=== PATIENT | male | born 1990 | race Caucasian/White ===

== ENCOUNTER 2017-02-22 05:41 | Outpatient (CLI) | payer OTHER ==
[~2017-02-22] VITALS: Ht 185.4 cm; Wt 131.5 kg
== END 2017-02-22 11:06 ==
LOC: PREOP 05:41
PROVIDERS: ATTEND Surgery
DX: Z01.818 Encounter for other preprocedural examination (principal); R10.32 Left lower quadrant pain; K62.89 Other specified diseases of anus and rectum

== ENCOUNTER 2017-02-23 10:01 | Day surgery (SDC) | payer OTHER ==
[~2017-02-23] VITALS: Ht 185.4 cm; Wt 131.5 kg
[2017-02-23] MEDS ORDERED: NS IV 1000 ML 1,000 ML IV STA (10:37)
[2017-02-23] MEDS ORDERED: NS IV 1000 ML 1,000 ML ONE (10:38)
[2017-02-23] MEDS ORDERED: HURRICAINE EXT TUBE (BENZOCAINE) XX PRN (10:45)
[2017-02-23] MEDS ORDERED: PROPOFOL INJECTION 50 ML IV ONE ×2 (10:56→11:24)
[2017-02-23] MEDS ORDERED: MIDAZOLAM 5 MG/5 ML (VERSED) VIAL ONE (10:56)
--- NOTE | 2017-02-23 11:08 | Progress Note-Pre Operative ---
Pre-Operative Progress Note H&P Reviewed The H&P was reviewed, patient examined and no changes noted. Date H&P Reviewed: February 23, 2017 Time H&P Reviewed: 11:08 Pre-Operative Diagnosis: LLQ abdominal pain, anorectal pain ANDREI PICKERING DO February 23, 2017 11:08
[2017-02-23 11:12] VITALS: BP 136/98
[2017-02-23] MEDS ORDERED: fentaNYL INJECTION 100 MCG/2 ML AMP ONE (11:27)
--- NOTE | 2017-02-23 11:44 | Discharge Inst-Simple/Standard ---
Discharge Inst-Standard Patient Instructions/Follow Up Plan of Care/Instructions/FU: Follow up in [address] Bush Activity as Tolerated: Yes Discharge Diet: No Restrictions SHAWN RUIZ APRN February 23, 2017 11:44
--- NOTE | 2017-02-23 11:45 | Progress Note-Post Operative ---
Post-Operative Progess Note Surgeon (s)/Pinball Machine Repairer (s) Surgeon ANDREI PICKERING DO Pinball Machine Repairer: na Pre-Operative Diagnosis LLQ abdominal pain, anorectal pain Post-Operative Diagnosis rectal polyp Procedure & Operative Findings Date of Procedure 02/23/17 Procedure Preformed/Findings colonoscopy with hot bx polypectomy Anesthesia Type per penology professor Estimated Blood Loss Estimated blood loss (mL): none Specimens/Packing Specimens Removed rectal polyp Packing: ANDREI Dominguez DO February 23, 2017 11:45 am
[2017-02-23 12:35] VITALS: BP 128/74
[2017-02-23 13:05] VITALS: BP 134/75
[2017-02-23 13:15] VITALS: BP 134/75
--- NOTE | 2017-02-24 07:12 | OPERATIVE REPORT ---
DATE OF SERVICE: 02/23/2017 PREOPERATIVE DIAGNOSIS: Left lower quadrant abdominal pain, anorectal pain. POSTOPERATIVE DIAGNOSIS: Rectal polyp. PROCEDURE: Colonoscopy with hot biopsy polypectomy. SURGEON: Andrei Bush DO ANESTHESIA: Per PLATE ROLLER. ESTIMATED BLOOD LOSS: None. COMPLICATIONS: None. INDICATIONS: The patient is a 27-year-old male who has been having left lower quadrant abdominal pain along with anorectal pain and will on occasion have a little bit of leakage. He understands risks and benefits of procedure and wished to proceed with procedure. Consent was signed and on the chart. DESCRIPTION OF PROCEDURE: The patient was taken to the endoscopy suite, placed in left lateral recumbent position. Timeout was performed. Digital rectal exam was performed. There was no palpable polyps, masses or ulcerations present. Scope was inserted in the rectum and advanced all the way to the cecum with minimal difficulty. Prep was adequate with irrigation and suction. The scope was then slowly retracted back. There are no polyps, masses or ulcerations within the cecum, ascending, transverse, descending and sigmoid colon. Once in the rectum, there is a small polyp, which hot biopsy polypectomy was performed. Scope was also retroflexed, noting some internal hemorrhoids. No other pathology noted. The scope was returned to its normal position and slowly withdrawn until completely removed, noting no other pathology. The patient tolerated procedure well without any complications and was taken to recovery room in stable condition. RECOMMENDATIONS: The patient will follow up in office in 2 weeks to discuss pathology results. The patient will need repeat colonoscopy in 5 years to reevaluate. If he has any problems prior to that, he should be reevaluated at that time. The patient also will be discussed bowel habits and stool habits. The patient to eat a high-fiber diet. Job ID: [id number] DocumentID: [id number] Dictated Date: 02/23/2017 11:45:51 Tube Inspector Date: 02/24/2017 05:54:56 Dictated By: ANDREI BUSH DO
== END 2017-02-23 13:15 | disposition home or self-care (01) ==
LOC: ENDO 10:01
PROVIDERS: ATTEND Surgery
DX: K62.1 Rectal polyp (principal); R10.32 Left lower quadrant pain

== ENCOUNTER 2017-07-20 21:55 | Emergency (ER) | payer OTHER ==
[~2017-07-20] VITALS: Ht 185.4 cm; Wt 128.4 kg
[2017-07-20] MEDS ORDERED: LACTATED RINGERS 1,000 ML IV ONE (22:31)
[2017-07-20] MEDS ORDERED: D5 NS 1000 ML IV SOLUTION 1,000 ML IV ONE (22:31)
--- NOTE | 2017-07-20 22:37 | ED GI ---
General Stated Complaint: DIARRHEA,UNABLE TO URINATE Source of Information: Patient, Spouse Exam Limitations: No Limitations History of Present Illness Time Seen By Provider: 22:25 Initial Comments Patient presents to ER by private conveyance with a chief complaint that he has for now 6 days been having loose watery nonbloody diarrhea. He has not had any exposure to unsafe water, camping, travel outside the [facility] or eating unsafe food. No one else around him is sick. He has used Imodium per the instructions on the box but did not feel that it stopped his diarrhea. He did not use more than 4 tablets in 24 hours. He went and saw the nurse practitioner at his primary care physician's office and they did some stool studies as well as got some blood tests done yesterday but he has not seen the results for them yet. He says for the past 2-3 days he's not urinated more than once a day and he has not urinated at all today. He feels weak, tired and dehydrated. He's never had loose stools or constipation before. He has no history of IBS or IBD. He has no significant medical history. Does not take any medicines. 2 days ago he had a fever 101.3 MAXIMUM TEMPERATURE. Last dose of Imodium was 2 hours ago. Allergies and Home Medications Allergies Coded Allergies: No Known Drug Allergies (Verified , 02/23/17) Home Medications No Active Prescriptions or Reported Meds Review of Systems Constitutional: No chills, No diaphoresis, fever (2 days ago), weakness EENTM: No Eye Pain, No Ear Pain Respiratory: Denies Cough, Denies Shortness of Air Cardiovascular: Denies Chest Pain, Denies Edema Gastrointestinal: Denies Abdomen Distended, Denies Abdominal Pain, Denies Blood Streaked Stools, Denies Constipated, Diarrhea, Denies Nausea, Poor Appetite, Poor Fluid Intake, Denies Rectal Bleeding, Denies Vomiting Genitourinary: Denies Burning, Denies Discharge, Denies Drainage Musculoskeletal: No back pain, No joint pain Skin: No pruritus, No rash Psychiatric/Neurological: Denies Headache, Denies Numbness, Denies Paresthesia Past Mxypohy-Umhkuh-Jeeizg Hx Patient Social History Recent Foreign Travel: No Contact w/Someone Who Travel: No Recent Hopitalizations: No Seasonal Allergies Seasonal Allergies: Yes Surgeries Surgeries: Eye Surgery Respiratory Currently Using CPAP: No Currently Using BIPAP: No Reproductive System Hx Reproductive Disorders: No Sexually Transmitted Disease: No HIV/AIDS: No Physical Exam Vital Signs VS - Last 72 Hours, by Label 07/20/17 22:20 Temp 98.8 Pulse 93 Resp 20 B/P (MAP) 123/78 Pulse Ox 97 O2 Delivery Room Air Capillary Refill : General Appearance: WD/WN, mild distress HEENT: PERRL/EOMI, pharynx normal (mm mildly dry) Neck: non-tender, normal inspection Respiratory: chest non-tender, lungs clear, normal breath sounds Cardiovascular: normal peripheral pulses, regular rate, rhythm, no edema Peripheral Pulses: 1+ Dorsalis Pedis (R), 1+ Left Dors-Pedis (L) Gastrointestinal: normal bowel sounds (on the hypoactive side of normal), soft , no organomegaly Extremities: normal range of motion, non-tender, normal inspection, no pedal edema, normal capillary refill Neurologic/Psychiatric: alert, normal mood/affect, oriented x 3 Skin: normal color, warm/dry Progress/Results/Core Measures Results/Orders Lab Results Laboratory Tests Test 07/20/17 22:34 07/21/17 00:03 Range/Units White Blood Count 5.8 4.3-11.0 10^3/uL Red Blood Count 5.25 4.35-5.85 10^6/uL Hemoglobin 14.8 13.3-17.7 G/DL Hematocrit 42 40-54 % Mean Corpuscular Volume 81 80-99 FL Mean Corpuscular Hemoglobin 28 25-34 PG Mean Corpuscular Hemoglobin Concent 35 32-36 G/DL Red Cell Distribution Width 12.5 10.0-14.5 % Platelet Count 210 130-400 10^3/uL Mean Platelet Volume 9.1 7.4-10.4 FL Neutrophils (%) (Auto) 66 42-75 % Lymphocytes (%) (Auto) 21 12-44 % Monocytes (%) (Auto) 12 0-12 % Eosinophils (%) (Auto) 1 0-10 % Basophils (%) (Auto) 0 0-10 % Neutrophils # (Auto) 3.9 1.8-7.8 X 10^3 Lymphocytes # (Auto) 1.2 1.0-4.0 X 10^3 Monocytes # (Auto) 0.7 0.0-1.0 X 10^3 Eosinophils # (Auto) 0.1 0.0-0.3 10^3/uL Basophils # (Auto) 0.0 0.0-0.1 10^3/uL Sodium Level 136 135-145 MMOL/L Potassium Level 3.5 L 3.6-5.0 MMOL/L Chloride Level 103 98-107 MMOL/L Carbon Dioxide Level 22 21-32 MMOL/L Anion Gap 11 5-14 MMOL/L Blood Urea Nitrogen 14 7-18 MG/DL Creatinine 1.37 H 0.60-1.30 MG/DL Estimat Glomerular Filtration Rate > 60 BUN/Creatinine Ratio 10 Glucose Level 102 70-105 MG/DL Calcium Level 9.2 8.5-10.1 MG/DL Magnesium Level 2.1 1.8-2.4 MG/DL Total Bilirubin 1.3 H 0.1-1.0 MG/DL Aspartate Amino Transf (AST/SGOT) 21 5-34 U/L Alanine Aminotransferase (ALT/SGPT) 39 0-55 U/L Alkaline Phosphatase 72 40-136 U/L Total Protein 7.6 6.4-8.2 GM/DL Albumin 4.2 3.2-4.5 GM/DL Urine Color YELLOW Urine Clarity CLEAR Urine pH 6 5-9 Urine Specific [place] 1.010 L 1.016-1.022 Urine Protein NEGATIVE NEGATIVE Urine Glucose (UA) NEGATIVE NEGATIVE Urine Ketones NEGATIVE NEGATIVE Urine Nitrite NEGATIVE NEGATIVE Urine Bilirubin NEGATIVE NEGATIVE Urine Urobilinogen NORMAL NORMAL MG/DL Urine Leukocyte Esterase NEGATIVE NEGATIVE Urine RBC (Auto) NEGATIVE NEGATIVE Urine RBC NONE /HPF Urine WBC NONE /HPF Urine Squamous Epithelial Cells 0-2 /HPF Urine Crystals NONE /LPF Urine Bacteria NEGATIVE /HPF Urine Casts NONE /LPF Urine Mucus SMALL H /LPF Urine Culture Indicated NO My Orders Orders - FANG GU Cbc With Automated Diff (07/20/17 21:59) Comprehensive Metabolic Panel (07/20/17 21:59) Magnesium (07/20/17 21:59) Ua Culture If Indicated (07/20/17 21:59) Saline Lock/Iv-Start (07/20/17 21:59) D5 Ns 1000 Ml Iv Solution (Dextrose 5%/0 (07/20/17 22:31) Lactated Ringers (Lr 1000 Ml Iv Solution (07/20/17 22:31) Medications Given in ED Current Medications Medications Dose Ordered Sig/Ron Route Start Time Stop Time Status Last Admin Dose Admin Dextrose/Sodium Chloride 1,000 ml @ 0 mls/hr Q0M ONCE IV 07/20/17 22:31 07/20/17 22:32 DC 07/20/17 23:22 1,000 MLS/HR Lactated Ringer's 1,000 ml @ 0 mls/hr Q0M ONCE IV 07/20/17 22:31 07/20/17 22:32 DC 07/20/17 22:44 1,000 MLS/HR Vital Signs/I&O Vital Sign - Last 12Hours 07/20/17 22:20 Temp 98.8 Pulse 93 Resp 20 B/P (MAP) 123/78 Pulse Ox 97 O2 Delivery Room Air Departure Impression Impression: Primary Impression: Diarrhea Qualified Codes: A09 - Infectious gastroenteritis and colitis, unspecified Additional Impression: Dehydration, moderate Disposition: 01 HOME, SELF-CARE Condition: Stable Departure-Patient Inst. Decision time for Depature: 00:43 Referrals: KIANNA ARELLANO DO (PCP/Family) Primary Care Physician Patient Instructions: Dehydration, Adult (DC), Diarrhea in Adolescents and Adults Add. Discharge Instructions: Drink plenty of fluids and continuous pickling line pickler the antidiarrheal medication, Lomotil and take 5 mg 4 times a day. We are symptoms of diarrhea start go away reduce the dose until you're not taking it anymore. Drink plenty of fluids. Follow-up with your primary care physician as needed. Scripts No Active Prescriptions or Reported Meds Copy Copies To 1: KIANNA ARELLANO TITUS J Jul 20, 2017 22:37
[2017-07-20 22:44] LABS: BASOPHILS % (AUTO) 0 % (0-10); EOSINOPHILS # (AUTO) 0.1 10^3/uL (0.0-0.3); EOSINOPHILS % (AUTO) 1 % (0-10); LYMPHOCYTES # (AUTO) 1.2 X 10^3 (1.0-4.0); LYMPHOCYTES % (AUTO) 21 % (12-44); MEAN CORPUSCULAR HEMOGLOBIN 28 PG (25-34); MEAN CORPUSCULAR HGB CONC 35 G/DL (32-36); MEAN CORPUSCULAR VOLUME 81 FL (80-99); MEAN PLATELET VOLUME 9.1 FL (7.4-10.4); MONOCYTES # (AUTO) 0.7 X 10^3 (0.0-1.0); MONOCYTES % (AUTO) 12 % (0-12); NEUTROPHILS # (AUTO) 3.9 X 10^3 (1.8-7.8); NEUTROPHILS % (AUTO) 66 % (42-75); PLATELET COUNT 210 10^3/uL (130-400); RED BLOOD COUNT 5.25 10^6/uL (4.35-5.85); RED CELL DISTRIBUTION WIDTH 12.5 % (10.0-14.5); WHITE BLOOD COUNT 5.8 10^3/uL (4.3-11.0)
[2017-07-20 23:04] LABS: ALANINE AMINOTRANSFERASE 39 U/L (0-55); ALBUMIN 4.2 GM/DL (3.2-4.5); ANION GAP 11 MMOL/L (5-14); ASPARTATE AMINO TRANSFERASE 21 U/L (5-34); BILIRUBIN,TOTAL 1.3 MG/DL (0.1-1.0); BLOOD UREA NITROGEN 14 MG/DL (7-18); BUN/CREATININE RATIO 10; CALCIUM 9.2 MG/DL (8.5-10.1); CARBON DIOXIDE 22 MMOL/L (21-32); CHLORIDE 103 MMOL/L (98-107); CREATININE SERUM 1.37 MG/DL (0.60-1.30); GFR ESTIMATED > 60; GLUCOSE 102 MG/DL (70-105); MAGNESIUM 2.1 MG/DL (1.8-2.4); POTASSIUM 3.5 MMOL/L (3.6-5.0); SODIUM 136 MMOL/L (135-145); TOTAL PROTEIN 7.6 GM/DL (6.4-8.2)
[2017-07-21 00:13] LABS: BILIRUBIN,URINE NEGATIVE (NEGATIVE); KETONES,URINE NEGATIVE (NEGATIVE); LEUKOCYTE ESTERASE ,URINE NEGATIVE (NEGATIVE); NITRITE,URINE NEGATIVE (NEGATIVE); PH,URINE 6 (5-9); PROTEIN,URINE NEGATIVE (NEGATIVE); UROBILINOGEN,URINE NORMAL (NORMAL)
[2017-07-21 00:26] LABS: SQUAMOUS EPITHELIAL CELL,UR 0-2 /HPF
[2017-07-21] MEDS ORDERED: DIPH1TAB PO (00:43)
[2017-07-21 00:51] VITALS: BP 123/78
== END 2017-07-21 00:51 | disposition home or self-care (01) ==
LOC: EDUNIT# 21:55 → ER 21:56
DX: R19.7 Diarrhea, unspecified (principal); E86.0 Dehydration
CPT/HCPCS: 36415; 80053; 81000; 83735; 85025

== ENCOUNTER 2019-10-05 22:13 | Emergency (ER) | payer BC, OTHER ==
[~2019-10-05] VITALS: Ht 187 cm; Wt 125.0 kg
[~2019-10-05 22:13] MED LIST: DIPH1TAB PO
[2019-10-05] MEDS ORDERED: LACTATED RINGERS 1,000 ML IV ONE (23:28)
[2019-10-05 23:34] LABS: BASOPHILS % (AUTO) 0 % (0-10); EOSINOPHILS # (AUTO) 0.1 10^3/uL (0.0-0.3); EOSINOPHILS % (AUTO) 1 % (0-10); HEMATOCRIT 45 % (40-54); HEMOGLOBIN 15.6 G/DL (13.3-17.7); LYMPHOCYTES # (AUTO) 1.5 X 10^3 (1.0-4.0); LYMPHOCYTES % (AUTO) 17 % (12-44); MEAN CORPUSCULAR HEMOGLOBIN 29 PG (25-34); MEAN CORPUSCULAR HGB CONC 35 G/DL (32-36); MEAN CORPUSCULAR VOLUME 82 FL (80-99); MEAN PLATELET VOLUME 8.8 FL (7.4-10.4); MONOCYTES # (AUTO) 0.5 X 10^3 (0.0-1.0); MONOCYTES % (AUTO) 6 % (0-12); NEUTROPHILS # (AUTO) 6.4 X 10^3 (1.8-7.8); NEUTROPHILS % (AUTO) 75 % (42-75); PLATELET COUNT 266 10^3/uL (130-400); RED CELL DISTRIBUTION WIDTH 12.6 % (10.0-14.5); WHITE BLOOD COUNT 8.4 10^3/uL (4.3-11.0)
[2019-10-05 23:51] LABS: ALANINE AMINOTRANSFERASE 38 U/L (0-55); ALBUMIN 4.7 GM/DL (3.2-4.5); ALKALINE PHOSPHATASE 78 U/L (40-136); BILIRUBIN,TOTAL 0.6 MG/DL (0.1-1.0); BUN/CREATININE RATIO 11; CALCIUM 9.9 MG/DL (8.5-10.1); CARBON DIOXIDE 23 MMOL/L (21-32); CHLORIDE 102 MMOL/L (98-107); CREATININE SERUM 0.99 MG/DL (0.60-1.30); GFR ESTIMATED > 60; GLUCOSE 139 MG/DL (70-105); SODIUM 137 MMOL/L (135-145); TOTAL PROTEIN 7.7 GM/DL (6.4-8.2)
--- NOTE | 2019-10-06 00:59 | ED General ---
General Chief Complaint: Dizziness/Syncope Stated Complaint: DIZZY,SHAKES Nursing Triage Note: AMBULATORY TO ED ROOM 10 WITH C/O DIZZINESS STARTING APPROX 1700. PT HAS HAD COUGH AND CONGESTION FOR 1.5-2 WEEKS. DENIES FEVER AND STATES NAUSEA WITH DIZZINESS. 1700-TYLENOL TAKEN. Source of Information: Patient Exam Limitations: No Limitations History of Present Illness Date Seen by Provider: Oct 05, 2019 Time Seen by Provider: 23:07 Initial Comments This 29-year-old young man presents to the emergency room with primary complaint of dizziness since about 17:00. His dizziness is described as a mild vertiginous type of sensation which is made worse by some movements but particularly standing up or lifting his head up. He also had the "shakes" about 3 hours ago but those have since resolved. He has had cough and congestion for about 10-15 days. His cough is been a little bit productive. He had a T gap immunization on Wednesday. He denies any fever, vomiting, or diarrhea. He has no urinary complaints. He has some nausea. He occasionally feels lightheaded. He is afebrile at present. He is initially quite hypertensive but this improves with rest and reassurance. Patient also complains of a nonspecific slightly pruritic rash on his scalp for about a week. Allergies and Home Medications Allergies Coded Allergies: No Known Drug Allergies (Verified , 02/23/17) Home Medications Diphenoxylate HCl/Atropine 1 Each Tablet, 1-2 EACH PO Q6H Prescribed by: FANG GU on 07/21/17 0043 Patient Home Medication List Home Medication List Reviewed: Yes Review of Systems Review of Systems Constitutional: see HPI EENTM: no symptoms reported Respiratory: no symptoms reported Cardiovascular: see HPI Gastrointestinal: see HPI Genitourinary: no symptoms reported Musculoskeletal: no symptoms reported Skin: no symptoms reported Psychiatric/Neurological: See HPI Hematologic/Lymphatic: No Symptoms Reported Immunological/Allergic: no symptoms reported Past Iajkqds-Zbeczx-Eltayt Hx Past Med/Social Hx: Reviewed and Corrections made Patient Social History Alcohol Use: Occasionally Uses Recreational Drug Use: No Smoking Status: Never a Smoker 2nd Hand Smoke Exposure: No Recent Foreign Travel: No Contact w/Someone Who Travel: No Recent Infectious Disease Expo: No Recent Hopitalizations: No Physical Abuse: No Sexual Abuse: No Mistreated: No Fear: No Immunizations Up To Date Tetanus Booster (TDap): Less than 5yrs Seasonal Allergies Seasonal Allergies: Yes Past Medical History Surgeries: Yes (BMT, WISDOM TEETH, COLONOSCOPY) Abdominal (colonoscopy), Ear Surgery (BMT), Eye Surgery Respiratory: No Currently Using CPAP: No Currently Using BIPAP: No Cardiac: No Neurological: No Reproductive Disorders: No Sexually Transmitted Disease: No HIV/AIDS: No Genitourinary: No Gastrointestinal: No Musculoskeletal: No Endocrine: No HEENT: No Cancer: No Psychosocial: No Integumentary: No Blood Disorders: No Physical Exam Vital Signs Vital Signs - First Documented 10/05/19 10/06/19 23:09 01:12 Temp 36.5 Pulse 82 Resp 18 B/P (MAP) 164/110 (128) Pulse Ox 98 O2 Delivery Room Air Capillary Refill : Less Than 3 Seconds Height, Weight, BMI Height: 6'1.00" Weight: 283lbs. 0.0oz. 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 No evidence of lice.) Progress/Results/Core Measures Suspected Sepsis Recent Fever Within 48 Hours: No New/Unexplained Altered Menta: No SIRS Temperature: Pulse: 82 Respiratory Rate: 18 Laboratory Tests 10/05/19 23:24: White Blood Count 8.4 Blood Pressure 164 /110 Mean: 128 Laboratory Tests 10/05/19 23:24: Creatinine 0.99, Platelet Count 266, Total Bilirubin 0.6 Results/Orders Lab Results Micro Results My Orders Medications Given in ED Vital Signs/I&O Capillary Refill : Less Than 3 Seconds Blood Pressure Mean: 128 Progress Note : Progress Note Influenza screen was negative. Labs were unremarkable. Patient was administered a liter of LR which did improve his symptoms. Patient wished to try a dose of meclizine prior to discharge. Based on his history and symptoms, I suspect he has a labyrinthitis/vestibulitis. Diagnostic Imaging Diagonstic Imaging: Xray Plain Films/CT/US/NM/MRI: chest Comments Chest x-ray viewed by me. Report not yet available. No acute abnormalities appreciated. Departure Impression Primary Impression: Dizziness Additional Impressions: Upper respiratory infection Qualified Codes: J06.9 - Acute upper respiratory infection, unspecified Rash Disposition: HOME, SELF-CARE Condition: Improved Departure-Patient Inst. Decision time for Depature: 00:58 Referrals: KIANNA ARELLANO DO (PCP/Family) Primary Care Physician Patient Instructions: Labyrinthitis, Skin Rash, Viral Upper Respiratory In fection, Adult (DC) Add. Discharge Instructions: Drink plenty of clear liquids. You may use meclizine purchased [id number] for dizziness. Follow package instructions. Use with caution as it may cause drowsiness. Return to care if you have worsening symptoms. Your rash may be related to viral illness that is also causing your other symptoms. If it does not resolve within a couple weeks of your other symptoms, return to your primary care provider for further evaluation. All discharge instructions reviewed with patient and/or family. Voiced understanding. GORDY MIXON MD Oct 06, 2019 00:59
[2019-10-06] MEDS ORDERED: MECLIZINE 25 MG (ANTIVERT) TAB PO ONE (01:00)
[2019-10-06 01:12] VITALS: BP 142/85
--- NOTE | 2019-10-06 06:33 | Diagnostic Imaging Report ---
INDICATION: Dizziness. PA and lateral views of the chest were obtained. FINDINGS: The heart size, mediastinal configuration, and pulmonary vascularity are within normal limits. There is no pleural effusion, pneumothorax, or pneumonia. The osseous structures are unremarkable. IMPRESSION: No acute cardiopulmonary abnormality. Dictated by: Dictated on workstation # [id number]
== END 2019-10-06 01:14 | disposition home or self-care (01) ==
LOC: EDUNIT# 22:13 → ER 22:14
DX: R42 Dizziness and giddiness (principal); J06.9 Acute upper respiratory infection, unspecified; R21 Rash and other nonspecific skin eruption
CPT/HCPCS: 36415; 71046; 80053; 83735; 85025; 87804; 96360

== ENCOUNTER → 2020-07-15 | Outpatient (CLI) | payer BC ==
--- NOTE | 2020-07-15 21:14 | NUR ---
Notified patient of positive COVID results. Answered questions. His birthday is 89 and not [birth year]. I will send this change to registration and lab.
== END ==
LOC: MERGE 08:50 → EDBD 08:50 → LABNPT 08:50
PROVIDERS: ATTEND Family Medicine
DX: U07.1 COVID-19 (principal); J06.9 Acute upper respiratory infection, unspecified
CPT/HCPCS: 87635

== ENCOUNTER 2020-07-18 15:34 | Emergency (ER) | payer BC ==
[~2020-07-18] VITALS: Ht 185 cm; Wt 128.0 kg
[2020-07-18] MEDS ORDERED: LACTATED RINGERS 2,000 ML IV ONE (15:57)
--- NOTE | 2020-07-18 15:59 | NUR ---
PT BECAME PALE ET STATES HE FEELS LIKE HE IS GOING TO PASS OUT. PULSE DROPPED TO 70 ET BP 109/47. COOL CLOTH APPLIED TO HEAD ET HEAD OF BED LAID BACK.
[2020-07-18] MEDS ORDERED: VIT D3 (16:10)
--- NOTE | 2020-07-18 16:10 | NUR ---
PT'S PULSE 100 ET STATES HE IS FEELING BETTER.
[2020-07-18] MEDS ORDERED: LACTATED RINGERS 1,000 ML IV ONE ×2 (16:12→16:15)
[2020-07-18] MEDS ORDERED: IBUPROFEN 800 MG (MOTRIN) TAB PO ONE (16:13)
[2020-07-18] MEDS ORDERED: IBUPROFEN 800 MG (MOTRIN) TAB PO STA (16:18)
[2020-07-18 16:25] LABS: BASOPHILS % (AUTO) 0 % (0-10); EOSINOPHILS % (AUTO) 0 % (0-10); HEMATOCRIT 44 % (40-54); HEMOGLOBIN 15.2 g/dL (13.3-17.7); LYMPHOCYTES # (AUTO) 0.9 10^3/uL (1.0-4.0); LYMPHOCYTES % (AUTO) 32 % (12-44); MEAN CORPUSCULAR HEMOGLOBIN 29 pg (25-34); MEAN CORPUSCULAR HGB CONC 34 g/dL (32-36); MEAN CORPUSCULAR VOLUME 86 fL (80-99); MEAN PLATELET VOLUME 9.2 fL (9.0-12.2); MONOCYTES # (AUTO) 0.3 10^3/uL (0.0-1.0); MONOCYTES % (AUTO) 11 % (0-12); NEUTROPHILS # (AUTO) 1.7 10^3/uL (1.8-7.8); NEUTROPHILS % (AUTO) 57 % (42-75); PLATELET COUNT 154 10^3/uL (130-400); WHITE BLOOD COUNT 2.9 10^3/uL (4.3-11.0)
--- NOTE | 2020-07-18 16:26 | ED General ---
General Chief Complaint: Respiratory Problems Stated Complaint: COVID +/LOW ABD PAIN/FEVER Nursing Triage Note: ARRIVED VIA AMB TO ROOM 09 IN [facility]. Nursing Sepsis Screen: Possible Severe Sepsis Risk Source of Information: Patient Exam Limitations: No Limitations History of Present Illness Date Seen by Provider: Jul 18, 2020 Time Seen by Provider: 15:58 Initial Comments Here with report of generalized body aches, fever, diarrhea, intermittent flank pain and syncope. Diagnosed with COVID-19 on Wednesday, 4 days ago with symptom onset one to 2 days prior. He has not been able to eat or drink well. States fevers have persisted and when he gets high fevers, he gets weaker and that is when he had syncopal episode several days ago. Intermittently feels like he is given a pass out. Very anxious and concerned about the illness. Timing/Duration: 4-5 Days, Getting Worse Severity: Moderate Associated Systoms: Cough, Fever/Chills, Headaches, Malaise; No Nausea/Vomiting, No Shortness of Air; Syncope, Weakness Allergies and Home Medications Allergies Coded Allergies: No Known Drug Allergies (Verified , 02/23/17) Patient Home Medication List Home Medication List Reviewed: Yes Review of Systems Review of Systems Constitutional: see HPI, dizziness, fever, malaise, weakness EENTM: nose congestion; No throat pain Respiratory: cough; No short of breath Cardiovascular: see HPI Gastrointestinal: see HPI; No nausea, No vomiting Genitourinary: decreased output; No dysuria Musculoskeletal: back pain, muscle pain Skin: no symptoms reported All Other Systems Reviewed Negative Unless Noted: Yes Past Blnikbh-Oulivz-Ujgxpr Hx Past Med/Social Hx: Reviewed Nursing Past Med/Soc Hx Patient Social History Alcohol Use: Denies Use Recreational Drug Use: No Smoking Status: Never a Smoker 2nd Hand Smoke Exposure: No Recent Foreign Travel: No Contact w/Someone Who Travel: No Recent Infectious Disease Expo: No Recent Hopitalizations: No Immunizations Up To Date Tetanus Booster (TDap): Less than 5yrs Seasonal Allergies Seasonal Allergies: Yes Past Medical History Surgeries: Yes (BMT, WISDOM TEETH, COLONOSCOPY) Abdominal, Ear Surgery, Eye Surgery Respiratory: No Currently Using CPAP: No Currently Using BIPAP: No Cardiac: No Neurological: No Reproductive Disorders: No Sexually Transmitted Disease: No HIV/AIDS: No Genitourinary: No Gastrointestinal: No Musculoskeletal: No Endocrine: No HEENT: No Cancer: No Psychosocial: No Integumentary: No Blood Disorders: No Family Medical History Reviewed Nursing Family Hx No Pertinent Family Hx Physical Exam Vital Signs Vital Signs - First Documented 07/18/20 15:45 Temp 38.1 Pulse 116 Resp 18 B/P (MAP) 154/94 (114) O2 Delivery Room Air Capillary Refill : Less Than 3 Seconds Height, Weight, BMI Height: 6'1.00" Weight: 283lbs. 0.0oz. [id number]; 37.00 BMI Method:Stated General Appearance: WD/WN, Anxious HEENT: PERRL/EOMI, Pharyngeal Erythema Neck: Non Tender, Supple Respiratory: Lungs Clear, Normal Breath Sounds Cardiovascular: No Murmur, Tachycardia Gastrointestinal: Non Tender, Soft Back: Normal Inspection, No CVA Tenderness, No Vertebral Tenderness Extremity: Normal Range of Motion, Non Tender Neurologic/Psychiatric: Alert, Oriented x3 Skin: Normal Color, Warm/Dry Progress/Results/Core Measures Suspected Sepsis Recent Fever Within 48 Hours: Yes Infection Criteria Present: Documented Infection New/Unexplained Altered Menta: No Sepsis Screen: Possible Severe Sepsis Risk SIRS Temperature: Pulse: 116 Respiratory Rate: 18 Laboratory Tests 07/18/20 16:00: White Blood Count 2.9L Blood Pressure 154 /94 Mean: 114 Laboratory Tests 07/18/20 16:00: Creatinine 1.32H, Platelet Count 154, Total Bilirubin 0.6 Results/Orders Lab Results Laboratory Tests Test 07/18/20 16:00 07/18/20 17:26 Range/Units White Blood Count 2.9 L 4.3-11.0 10^3/uL Red Blood Count 5.17 4.30-5.52 10^6/uL Hemoglobin 15.2 13.3-17.7 g/dL Hematocrit 44 40-54 % Mean Corpuscular Volume 86 80-99 fL Mean Corpuscular Hemoglobin 29 25-34 pg Mean Corpuscular Hemoglobin Concent 34 32-36 g/dL Red Cell Distribution Width 11.9 10.0-14.5 % Platelet Count 154 130-400 10^3/uL Mean Platelet Volume 9.2 9.0-12.2 fL Immature Granulocyte % (Auto) 0 % Neutrophils (%) (Auto) 57 42-75 % Lymphocytes (%) (Auto) 32 12-44 % Monocytes (%) (Auto) 11 0-12 % Eosinophils (%) (Auto) 0 0-10 % Basophils (%) (Auto) 0 0-10 % Neutrophils # (Auto) 1.7 L 1.8-7.8 10^3/uL Lymphocytes # (Auto) 0.9 L 1.0-4.0 10^3/uL Monocytes # (Auto) 0.3 0.0-1.0 10^3/uL Eosinophils # (Auto) 0.0 0.0-0.3 10^3/uL Basophils # (Auto) 0.0 0.0-0.1 10^3/uL Immature Granulocyte # (Auto) 0.0 0.0-0.1 10^3/uL Sodium Level 138 135-145 MMOL/L Potassium Level 3.7 3.6-5.0 MMOL/L Chloride Level 101 98-107 MMOL/L Carbon Dioxide Level 26 21-32 MMOL/L Anion Gap 11 5-14 MMOL/L Blood Urea Nitrogen 13 7-18 MG/DL Creatinine 1.32 H 0.60-1.30 MG/DL Estimat Glomerular Filtration Rate > 60 BUN/Creatinine Ratio 10 Glucose Level 94 70-105 MG/DL Calcium Level 8.8 8.5-10.1 MG/DL Corrected Calcium 8.4 L 8.5-10.1 MG/DL Total Bilirubin 0.6 0.1-1.0 MG/DL Aspartate Amino Transf (AST/SGOT) 21 5-34 U/L Alanine Aminotransferase (ALT/SGPT) 28 0-55 U/L Alkaline Phosphatase 55 40-136 U/L C-Reactive Protein High Sensitivity 0.64 H 0.00-0.50 MG/DL Total Protein 7.7 6.4-8.2 GM/DL Albumin 4.5 3.2-4.5 GM/DL Urine Color YELLOW Urine Clarity CLEAR Urine pH 6.5 5-9 Urine Specific [place] 1.020 1.016-1.022 Urine Protein TRACE H NEGATIVE Urine Glucose (UA) NEGATIVE NEGATIVE Urine Ketones NEGATIVE NEGATIVE Urine Nitrite NEGATIVE NEGATIVE Urine Bilirubin NEGATIVE NEGATIVE Urine Urobilinogen 0.2 < = 1.0 MG/DL Urine Leukocyte Esterase NEGATIVE NEGATIVE Urine RBC (Auto) NEGATIVE NEGATIVE Urine RBC NONE /HPF Urine WBC NONE /HPF Urine Crystals NONE /LPF Urine Bacteria NEGATIVE /HPF Urine Casts PRESENT /LPF Urine Hyaline Casts 0-2 H /LPF Urine Mucus MODERATE H /LPF Urine Culture Indicated NO My Orders Orders - EDUARDO MAN MD Lactated Ringers (Lr 1000 Ml Iv Solution (07/18/20 15:57) Ed Iv/Invasive Line Start (07/18/20 16:12) Lactated Ringers (Lr 1000 Ml Iv Solution (07/18/20 16:12) Ed Iv/Invasive Line Start (07/18/20 16:15) Lactated Ringers (Lr 1000 Ml Iv Solution (07/18/20 16:15) Ibuprofen Tablet (Motrin Tablet) (07/18/20 16:18) Ibuprofen Tablet (Motrin Tablet) (07/18/20 16:13) Cbc With Automated Diff (07/18/20 16:20) Comprehensive Metabolic Panel (07/18/20 16:20) Hs C Reactive Protein (07/18/20 16:20) Ua Culture If Indicated (07/18/20 16:20) Ed Iv/Invasive Line Start (07/18/20 16:20) Chest 1 View, Ap/Pa Only (07/18/20 16:20) Medications Given in ED Current Medications Medications Dose Ordered Sig/Ron Route Start Time Stop Time Status Last Admin Dose Admin Lactated Ringer's 1,000 ml @ 0 mls/hr Q0M ONCE IV 07/18/20 16:12 07/18/20 16:13 DC 07/18/20 16:14 0 MLS/HR Lactated Ringer's 1,000 ml @ 0 mls/hr Q0M ONCE IV 07/18/20 16:15 07/18/20 16:16 DC 07/18/20 16:18 1,000 MLS/HR Vital Signs/I&O 07/18/20 15:45 Temp 38.1 Pulse 116 Resp 18 B/P (MAP) 154/94 (114) O2 Delivery Room Air Capillary Refill : Less Than 3 Seconds Blood Pressure Mean: 114 Progress Note : Progress Note Seen and evaluated. IV, labs, UA, LR 2 L bolus, he Profen 800 mg by mouth ordered. Monitor patient. Patient had a syncopal event after IV start and during conversation regarding COVID-19. Improved when laid down. Heart rate noted to go from 116t to 65 during the vagal event. Feeling better when lying down. Monitor patient. 1735: UA obtained and sent. Patient was able walk to the bathroom without difficulty and actually feels much better. Chest x-ray negative. No significant acute abnormality on the labs although white count is low which may be related to the current viral syndrome. Monitor patient. 1800: UA complete and no significant findings. Patient still doing better. At this point I believe safe to discharge home. I discussed with him to follow-up with Dr. Betts for recheck his labs after completion of the illness. Return precautions discussed. Discharged home with return precautions. Patient verbalize understanding instructions and agreement with plan. Diagnostic Imaging Diagonstic Imaging: Xray Plain Films/CT/US/NM/MRI: chest Comments [facility] [place], [place] NAME: RITU SMITH [facility] REC#: [id number] PT STATUS: REG ER : 1990 PHYSICIAN: EDUARDO MAN MD ADMIT DATE: 07/18/20/ER Signed Date of Exam:07/18/20 CHEST 1 VIEW, AP/PA ONLY EXAMINATION: Chest 1 view HISTORY: COVID-19 positive, weakness. COMPARISON: 10/05/2019. FINDINGS: The lung volumes are normal. No focal consolidation is seen. No large pleural effusion or pneumothorax is seen. The cardiomediastinal silhouette is normal in size and contour. No acute osseous abnormality is seen. IMPRESSION: 1. No focal consolidations or pleural effusions. Dictated by: Dictated on workstation # [id number] Dict: 07/18/201702 Trans: 07/18/201706 [facility] [id number] Interpreted by: VENITA CENTENO DO Electronically signed by: VENITA CENTENO DO 07/18/201706 Departure Impression Primary Impression: Dehydration Additional Impression: COVID-19 virus infection Disposition: 01 HOME, SELF-CARE Condition: Improved Departure-Patient Inst. Decision time for Depature: 17:37 Referrals: KIANNA BETTS DO (PCP/Family) Primary Care Physician Patient Instructions: Coronavirus Disease 2019 (COVID-19) (DC), Dehydration, Adult (DC) Add. Discharge Instructions: All discharge instructions reviewed with patient and/or family. Voiced understanding. Drink plenty of fluids for taking small sips frequently. Clear liquid or light diet for the next day or 2. You may take ibuprofen 600 mg every 8 hours as needed for fever or pain. You may take Tylenol/acetaminophen 1000 mg every 6 hours as needed for fever or pain. Get plenty of rest. Return for worsening symptoms, vomiting, breathing problems, weakness or other concerns as needed. You should follow-up with your Dr. in the next few weeks for recheck blood counts. Copy Copies To 1: KIANNA BETTS TIMOTHY D MD Jul 18, 2020 16:26
[2020-07-18 16:30] LABS: ALBUMIN 4.5 GM/DL (3.2-4.5); CHLORIDE 101 MMOL/L (98-107); POTASSIUM 3.7 MMOL/L (3.6-5.0); SODIUM 138 MMOL/L (135-145)
[2020-07-18 16:32] LABS: CALCIUM 8.8 MG/DL (8.5-10.1)
[2020-07-18 16:33] LABS: GLUCOSE 94 MG/DL (70-105); TOTAL PROTEIN 7.7 GM/DL (6.4-8.2)
[2020-07-18 16:34] LABS: BILIRUBIN,TOTAL 0.6 MG/DL (0.1-1.0); CARBON DIOXIDE 26 MMOL/L (21-32)
[2020-07-18 16:36] LABS: ALKALINE PHOSPHATASE 55 U/L (40-136)
[2020-07-18 16:37] LABS: CREATININE SERUM 1.32 MG/DL (0.60-1.30); GFR ESTIMATED > 60
[2020-07-18 16:38] LABS: BUN/CREATININE RATIO 10
[2020-07-18 16:39] LABS: ALANINE AMINOTRANSFERASE 28 U/L (0-55)
--- NOTE | 2020-07-18 17:04 | Diagnostic Imaging Report ---
EXAMINATION: Chest 1 view HISTORY: COVID-19 positive, weakness. COMPARISON: 10/05/2019. FINDINGS: The lung volumes are normal. No focal consolidation is seen. No large pleural effusion or pneumothorax is seen. The cardiomediastinal silhouette is normal in size and contour. No acute osseous abnormality is seen. IMPRESSION: 1. No focal consolidations or pleural effusions. Dictated by: Dictated on workstation # [id number]
[2020-07-18 17:35] LABS: BILIRUBIN,URINE NEGATIVE (NEGATIVE); CLARITY,URINE CLEAR; COLOR,URINE YELLOW; GLUCOSE, URINE (UA) NEGATIVE (NEGATIVE); KETONES,URINE NEGATIVE (NEGATIVE); LEUKOCYTE ESTERASE ,URINE NEGATIVE (NEGATIVE); NITRITE,URINE NEGATIVE (NEGATIVE); PH,URINE 6.5 (5-9); PROTEIN,URINE TRACE (NEGATIVE)
[2020-07-18 17:45] LABS: BACTERIA,URINE NEGATIVE /HPF; HYALINE CASTS, URINE 0-2 /LPF
[2020-07-18 18:09] VITALS: BP 112/79
== END 2020-07-18 18:09 | disposition home or self-care (01) ==
LOC: EDUNIT# 15:34 → ER 15:36
DX: U07.1 COVID-19 (principal); E86.0 Dehydration
CPT/HCPCS: 36415; 71045; 80053; 81000; 85025; 86141

== ENCOUNTER → 2020-07-24 | Outpatient (CLI) | payer BC ==
[~2020-07-24] MED LIST changes: +HOLD METFORMIN - RECEIVED CONTRAST 20 ML VIAL IV SCH; +IOHEXOL 350 MG/ML 100 ML (OMNIPAQUE 350) VIAL IV ONE; +NS 100 ML (IVPB) BAG IV ONE; +VIT D3
--- NOTE | 2020-07-24 13:16 | Diagnostic Imaging Report ---
PROCEDURE: CT angiography of the chest with contrast. TECHNIQUE: Multiple contiguous axial images were obtained through the chest after uneventful bolus administration of intravenous contrast. 3D reconstructed CTA MIP acquisitions were also performed. Auto Exposure Controls were utilized during the CT exam to meet ALARA standards for radiation dose reduction. INDICATION: Shortness of breath. Chest tightness. COVID-19 positive. COMPARISON: Chest radiograph 07/18/2020. FINDINGS: No pulmonary emboli. Normal caliber thoracic aorta. Normal heart size. No pericardial effusion. Several scattered groundglass opacities throughout both lungs are greatest in the upper lobes. No pleural effusion or pneumothorax. Prominent bilateral hilar lymph nodes remain subcentimeter in short axis dimension are likely reactive. Visualized upper abdominal contents are unremarkable. No acute osseous findings. IMPRESSION: 1. No pulmonary emboli. 2. Numerous scattered groundglass opacities throughout both lungs, greatest in the upper lobes, consistent with pneumonitis and compatible with the reported history of COVID-19. Dictated by: Dictated on workstation # [id number]
== END ==
LOC: RAD 12:15
PROVIDERS: ATTEND Family Medicine
DX: U07.1 COVID-19 (principal); R91.8 Other nonspecific abnormal finding of lung field
CPT/HCPCS: 71275

== ENCOUNTER → 2020-10-10 | Outpatient (CLI) | payer BC ==
[~2020-10-10] MED LIST changes: -HOLD METFORMIN - RECEIVED CONTRAST 20 ML VIAL IV SCH; -IOHEXOL 350 MG/ML 100 ML (OMNIPAQUE 350) VIAL IV ONE; -NS 100 ML (IVPB) BAG IV ONE
--- NOTE | 2020-10-10 17:37 | NUR ---
Notified of positive COVID test.
== END ==
LOC: LABNPT 08:31
PROVIDERS: ATTEND Family Medicine
DX: U07.1 COVID-19 (principal)
CPT/HCPCS: 87635